=== PATIENT | female | born 1980 ===

== ENCOUNTER → 2017-09-30 | Emergency (ER) | payer OTHER ==
[~2017-09-30] VITALS: Ht 154.9 cm; Wt 113.4 kg
[~2017-09-30] MED LIST: KEFLEX500 MG PO; LOSARTAN POTASS50 MG PO; PRENATAL VITAMI1 TAB PO
== END | disposition home or self-care (01) ==
LOC: ER 18:31
DX: R00.2 Palpitations (principal); F06.4 Anxiety disorder due to known physiological condition

== ENCOUNTER 2018-01-15 16:28 | Emergency (ER) | payer OTHER ==
[~2018-01-15] VITALS: Ht 154.9 cm; Wt 109.8 kg
[2018-01-15] MEDS ORDERED: LABETALOL HCL100 MG (16:50)
[2018-01-15] MEDS ORDERED: PRENATAL VITAM1 EAC3 (16:50)
[2018-01-15] MEDS ORDERED: IRON325 MG (16:51)
== END 2018-01-15 22:35 | disposition home or self-care (01) ==
LOC: ER 16:28
DX: O98.511 Other viral diseases complicating pregnancy, first trimester (principal); B34.9 Viral infection, unspecified; Z34.81 Encounter for supervision of other normal pregnancy, first trimester

== ENCOUNTER → 2018-01-20 | Emergency (ER) | payer OTHER ==
[~2018-01-20] VITALS: Ht 154.9 cm; Wt 109.8 kg
[~2018-01-20] MED LIST changes: +IRON325 MG; +LABETALOL HCL100 MG; +PRENATAL VITAM1 EAC3
== END | disposition home or self-care (01) ==
LOC: ER 17:26
DX: R53.1 Weakness (principal); N39.0 Urinary tract infection, site not specified; R05 Cough